=== PATIENT | female | born 1955 | race Two or more races ===

== ENCOUNTER → 2018-01-10 | Outpatient (CLI) | END | disposition home or self-care (01) ==

== ENCOUNTER 2018-06-08 09:47 | Inpatient (IN) | payer OTHER ==
[~2018-06-08] VITALS: Ht 170.2 cm; Wt 96.0 kg
[2018-06-08] VITALS (26 sets, daily range): BP systolic 80–152; BP diastolic 41–68; PULSE 50–76; RESP 12–29; Ht 170.2 cm; Wt 96.0 kg
--- NOTE | 2018-06-08 10:25 | PDOCDIS ---
Discharge Instructions DIAGNOSIS Discharge Diagnosis Status post right total knee replacement CONDITION [id number] Patient Condition: Npyro3i Good HOME CARE INSTRUCTIONS: [id number] Diet Instructions: [id number] Regular ACTIVITY: [id number] Activity Restrictions: [id number] No Restrictions Slowly Increase Activity Rest between Activity Avoid heavy lifting No Sexual Activity Do not Drive Do not operate Machinery Do not operate Power Tool Avoid Heavy Housework Keep Limb Elevated (2-3 pillows underneath the right foot only so that leg remains in full extension) Weight Bearing (Weight-bear as tolerated using front-wheeled walker) [id number] Bathing Restrictions: [id number] Shower (Prineo dressing to remain over surgical wound until seen postoperatively. Okay to shower with this dressing. No bathing or submersion in water.) FOLLOW UP/APPOINTMENTS Follow-up Plan Follow-up at postoperative appointment provided to you at your preoperative exam SELENE CASTRO PA-C Jun 08, 2018 10:25
[2018-06-08] MEDS ORDERED: ATOR10TA65 PO (10:26)
[2018-06-08] MEDS ORDERED: BETHANECHOL 25 MG TAB PO PRN (10:30)
[2018-06-08] MEDS ORDERED: ASPIRIN 81 MG TAB PO ONE (10:30)
[2018-06-08] MEDS ORDERED: DIPHENHYDRAMINE 50 MG INJ IV PRN ×3 (10:30→13:00)
[2018-06-08] MEDS ORDERED: SENNA/DOCUSATE NA (8.6MG/50MG) TAB PO PRN (10:30)
[2018-06-08] MEDS ORDERED: DOCUSATE SODIUM 100 MG CAP PO ONE (10:30)
[2018-06-08] MEDS ORDERED: NA PHOSPHATE/BIPHOS 133 ML ENEMA PR PRN (10:30)
[2018-06-08] MEDS ORDERED: BISACODYL 10 MG SUPP PR PRN (10:30)
[2018-06-08] MEDS ORDERED: NACL 0.9% 3 ML SYG IV SCH (10:30)
[2018-06-08] MEDS ORDERED: NALOXONE (0.4 MG/ML) INJ IV PRN ×2 (10:30→13:00)
[2018-06-08] MEDS ORDERED: oxyCODONE 5 MG TAB PO PRN ×2 (10:30)
[2018-06-08] MEDS ORDERED: MAGNESIUM HYDROXIDE 30ML CUP PO PRN (10:30)
[2018-06-08] MEDS ORDERED: LACTATED RINGER'S 1,000 ML IV* SCH (11:00)
[2018-06-08] MEDS ORDERED: CEFAZOLIN 2 GM/50 ML (PMX) 50 ML IVPB ONE (11:00)
[2018-06-08] MEDS ORDERED: TRANEXAMIC ACID 1,000 MG in NS 100 ML PRE-OP X1 IVPB ONE (12:00)
[2018-06-08] MEDS ORDERED: morphine SULFATE/PF (10 MG/10 ML) INJ ONE (12:11)
[2018-06-08] MEDS ORDERED: ONDANSETRON 4 MG INJ ONE (12:11)
[2018-06-08] MEDS ORDERED: CEFAZOLIN 1 GM INJ ONE (12:11)
[2018-06-08] MEDS ORDERED: DEXAMETHASONE 4 MG/ML 5 ML INJ ONE (12:11)
[2018-06-08] MEDS ORDERED: NEOSTIGMINE 3 MG/3 ML SYRINGE ONE (12:11)
[2018-06-08] MEDS ORDERED: GLYCOPYRROLATE 0.4 MG INJ ONE (12:11)
[2018-06-08] MEDS ORDERED: ROPIVACAINE 0.5 % 30 ML VIAL ONE (12:11)
[2018-06-08] MEDS ORDERED: PROPOFOL 20 ML ONE (12:11)
[2018-06-08] MEDS ORDERED: MIDAZOLAM 1 MG/ML 2 ML INJ ONE (12:11)
[2018-06-08] MEDS ORDERED: ROCURONIUM 50 MG INJ ONE (12:11)
[2018-06-08] MEDS ORDERED: FENTAnyl 50 MCG/ML VIAL ONE (12:11)
[2018-06-08] MEDS ORDERED: HIP PAIN COCKTAIL (CEFUROXIME) INJ SCH ×7 (12:30)
--- NOTE | 2018-06-08 12:46 | HPN ---
Date/Time of Note Date/Time of Note DATE: 06/08/18 TIME: 12:46 Interval H&P Admission Note Pt. seen H&P reviewed: No system changes KELSEY KESSLER MD Jun 08, 2018 12:46
[2018-06-08] MEDS ORDERED: BACITRACIN 50000 UNITS INJ ONE (12:53)
[2018-06-08] MEDS ORDERED: POLYMYXIN B 500000 UNIT INJ ONE (12:54)
--- NOTE | 2018-06-08 12:58 | PREAC ---
Date/Time of Note Date/Time of Note DATE: 06/08/18 TIME: 12:57 Anesthesia Eval and Record Evaluation Time Pre-Procedure Interview DATE: 06/08/18 TIME: 12:57 Age 62 Sex female NPO: 8 hrs Preoperative diagnosis RIGHT KNEE OA Planned procedure RIGHT TKA Past Medical History Past Medical History: Includes Cardio: Dyslipidemia GI: Obesity Surgery & Anesthesia Issues No known issue (RIGHT EYE SX) Meds Anticoagulation: No Beta Isaiah within 24 hr: No Reason Beta Isaiah not given: Pt. not on B-Isaiah Reported Medications Atorvastatin Calcium (Atorvastatin Calcium) 10 Mg Tablet, 10 MG PO QHS, #30 TAB 06/08/18 Current Medications Lactated Ringer's 1,000 ml @ 125 mls/hr Q8H IV* ; Start 06/08/18 at 11:00; Stop 06/08/18 at 18:59 Tranexamic Acid 1000 mg/Sodium Chloride 110 ml @ 220 mls/hr INTRA-OP ONCE IVPB ; Start 06/08/18 at 13:30; Stop 06/08/18 at 13:59 Sodium Chloride 1,000 ml @ 80 mls/hr [id number] IV ; Start 06/08/18 at 10:28 IV Flush (NS 3 ml) 3 ml PER PROTOCOL IV ; Start 06/08/18 at 10:30 Oxycodone HCl (Roxicodone) 15 mg Q4H PRN PO PAIN; Start 06/08/18 at 10:30 Oxycodone HCl (Roxicodone) 10 mg Q4H PRN PO PAIN; Start 06/08/18 at 10:30 Oxycodone HCl (Roxicodone) 5 mg Q4H PRN PO PAIN; Start 06/08/18 at 10:30 Ondansetron HCl (Zofran Inj) 4 mg Q4H PRN IV NAUSEA AND/OR VOMITING; Start 06/09/18 at 10:30 Cefazolin Sodium/ Dextrose 50 ml @ 100 mls/hr Q8 IVPB ; Start 06/08/18 at 22:00; Stop 06/09/18 at 14:29 Celecoxib (Celebrex) 100 mg BID PO ; Start 06/09/18 at 09:00 Gabapentin (Neurontin) 100 mg TID PO ; Start 06/08/18 at 14:00 Pantoprazole (Protonix Tab) 40 mg DAILY@06 PO ; Start 06/10/18 at 06:00 Docusate Sodium (Colace) 200 mg BID PO ; Start 06/09/18 at 09:00; Stop 06/12/18 at 08:59 Simethicone (Mylicon) 80 mg TID PRN PO DISTENSION/GAS/BLOATING; Start 06/08/18 at 10:30 Senna/Docusate Sodium (Senokot-S) 2 tab BID PRN PO CONSTIPATION; Start 06/08/18 at 10:30 Magnesium Hydroxide (Milk Of Mag) 30 ml HS PRN PO CONSTIPATION; Start 06/08/18 at 10:30 Bisacodyl (Dulcolax Supp) 10 mg DAILY PRN [place] CONSTIPATION; Start 06/08/18 at 10:30 Sodium Biphosphate/ Sodium Phosphate (Fleet Enema) 133 ml DAILY PRN [place] CONSTIPATION; Start 06/08/18 at 10:30 Diphenhydramine HCl (Benadryl) 25 mg Q4H PRN IV ITCHING; Start 06/08/18 at 10:30 Naloxone HCl (Narcan) 0.2 mg Q2M PRN IV DECREASED REPIRATORY RATE; Start 06/08/18 at 10:30 Bethanechol Chloride (Urecholine) 25 mg URINARY CATH D/C PRN PO UNABLE TO VOID; Start 06/08/18 at 10:30 Aspirin (Halfprin) 81 mg BID PO ; Start 06/09/18 at 09:00 Meds reviewed: Yes Allergies Coded Allergies: No Known Allergy (Unverified , 06/08/18) Allergies Reviewed: Yes Labs/Studies Labs Reviewed: Reviewed by anesthesiologist test: N/A Studies: ECG (NL), CXR (NAPD) Pre-procedure Exam Last vitals Vital Signs Date Temp Pulse Resp B/P (MAP) Pulse Ox O2 O2 Flow FiO2 Time Delivery Rate 06/08/18 97.0 65 18 152/67 98 Room Air 10:55 (95) Airway: Adequate mouth opening, Adequate thyromental dist Mallampati: Mallampati II Teeth: Normal Lung: Normal Heart: Normal ASA Physical Status ASA physical status: 2 Emergency: None Planned Anesthetic General/MAC: ETT Neuraxial: Spinal Nerve block: Femoral (right) Planned Pain Management Single shot nerve block, Parenteral pain med Pre-operative Attestations Prior to commencing anesthesia and surgery, the patient was re-evaluated, there was verification of: *The patient's identity *The results of appropriate recent lab work and preoperative vital signs *The above evaluation not changing prior to induction *Anesthetic plan, risk benefits, alternative and complications discussed with patient/family; questions answered; patient/family understands, accepts and wishes to proceed. Nicholas Crews M.D. Jun 08, 2018 12:58
[2018-06-08] MEDS ORDERED: EPHEDrine SULFATE 50 MG/5 ML SYG IV PRN (13:00)
[2018-06-08] MEDS ORDERED: NALBUPHINE HCL (10 MG/1 ML) INJ IV PRN (13:00)
[2018-06-08] MEDS ORDERED: LABETALOL HCL 20MG INJ IV PRN (13:00)
[2018-06-08] MEDS ORDERED: ONDANSETRON 4 MG INJ IV PRN ×2 (13:00)
[2018-06-08] MEDS ORDERED: MEPERIDINE 25 MG INJ IV PRN (13:00)
[2018-06-08] MEDS ORDERED: FENTAnyl 50 MCG/ML VIAL IV PRN ×3 (13:00)
[2018-06-08] MEDS ORDERED: ALBUTEROL 0.083% (NEB) 2.5 MG/3 ML AMP HHN PRN (13:00)
[2018-06-08] MEDS ORDERED: HYDROmorphONE 1 MG/5 ML IV SYRINGE IV PRN ×3 (13:00)
[2018-06-08] MEDS ORDERED: MIDAZOLAM 1 MG/ML 2 ML INJ IV PRN (13:00)
[2018-06-08] MEDS ORDERED: KETOROLAC 30 MG INJ IV PRN (13:00)
[2018-06-08] MEDS ORDERED: OXYCODONE/ACETAMINOPHEN (5/325) TAB PO PRN ×2 (13:00)
[2018-06-08] MEDS ORDERED: TRIMETHOBENZAMIDE 100 MG/ML VIAL IM PRN ×2 (13:00)
[2018-06-08] MEDS ORDERED: hydrALAzine 20 MG INJ IV PRN (13:00)
[2018-06-08] MEDS ORDERED: HYDROmorphONE 0.5 MG/0.5 ML SYG IV PRN ×2 (13:00)
[2018-06-08] MEDS ORDERED: IPRATROPIUM (NEB) 0.5 MG/2.5 ML AMP HHN PRN (13:00)
[2018-06-08] MEDS ORDERED: ZOLPIDEM 5 MG TAB PO PRN (13:00)
[2018-06-08] MEDS ORDERED: TRANEXAMIC ACID 1,000 MG in NS 100 ML INTRA-OP X1 IVPB ONE (13:30)
[2018-06-08] MEDS: GABAPENTIN 100 MG CAP PO SCH ×2 (14:00→21:18)
--- NOTE | 2018-06-08 15:05 | SIPON ---
Date/Time of Note Date/Time of Note DATE: 06/08/18 TIME: 15:03 Operative Report Preoperative Diagnosis Right Knee Osteoarthritis Postoperative Diagnosis Same Operation/Procedure Performed Right Total Knee Arthroplasty Surgeon Lucía Kessler MD assistant professor of geography Roberto Gonzalez Second assist: SELENE CASTRO PA-C Anesthesia: spinal Estimated blood loss: 250 - 300 ml's Transfusion Required none Specimen bone Grafts/Implants none Complications none LUCÍA KESSLER MD Jun 08, 2018 15:05
--- NOTE | 2018-06-08 15:09 | OPR ---
Date/Time of Note Date/Time of Note DATE: 06/08/18 TIME: 15:05 Operative Report Free Text/Dictation DATE OF OPERATION: June 08, 2018 SURGEON: Kelsey Kessler MD ROADWAY ENGINEER: Roberto SOTO ROADWAY ENGINEER: Mike Childers PREOPERATIVE DIAGNOSIS: Right knee osteoarthritis. POSTOPERATIVE DIAGNOSIS: Right knee osteoarthritis. PROCEDURES PERFORMED: Right total knee arthroplasty, CPT code 97977. ANESTHESIOLOGIST: Dr. Crews ANESTHESIA: Spinal. ESTIMATED BLOOD LOSS: 300 mL. COMPLICATIONS: None. SPECIMENS: Resected bone. DISPOSITION: PACU in stable condition. TOURNIQUET TIME: 57 minutes at 250 mmHg. IMPLANT USED: Avelar and Nephew size 5 Margie tibial baseplate, size 5 Standard posterior stabilized Oxinium femur, size 9 high flexion polyethylene, size 35 mm patella. INDICATION FOR PROCEDURE: This is an 62-year-old female with end-stage osteoarthritis of the right knee who had failed nonoperative management. Risks, benefits, alternatives of surgical intervention were discussed with the patient and informed consent was obtained. The risks of surgery include but are not limited to infection, deep venous thrombosis, pulmonary embolism, damage to nerves and blood vessels, numbness around incision site, stiffness of knee, need for total knee manipulation under anesthesia, need for blood transfuion, heart attack, stroke, risks associated with anesthesia, implant loosening, wear of prosthesis, need for revision surgery, and . DESCRIPTION OF PROCEDURE: The patient was met in the preoperative suite. The correct operative site was confirmed and marked. The patient was then brought into operating room. After induction of anesthesia, the patient was placed in the supine position on the operating room table. A tourniquet was applied to right upper thigh. The right lower extremity was prepped and draped in the usual sterile fashion. Before starting, a timeout was taken to identify the cor rect operative site and confirm preoperative antibiotics consisting of 1 g of IV Ancef, along with 1 g of tranexamic acid were administered. At this point, the right leg was elevated and exsanguinated with an Esmarch and tourniquet was then insufflated for the above noted time. A midline incision was made and median parapatellar arthrotomy was then completed. The lateral patellar retinacular ligaments were released. A sleeve of tissue was released from the medial proximal tibia. The cruciate ligaments and the menisci were then excised. At this point, the custom distal femur cutting block was then pinned and 9.5 mm was resected from the distal femur. The 4-in-1 cutting block, size 5 was then placed. An mey wing was used to confirm that notching of the anterior cortex of the femur would not occur. The anterior and posterior condylar cuts were completed followed by the anterior and posterior chamfer cuts. The osteophytes were then removed with a rongeur. At this point, the tibia was subluxed anteriorly. Appropriate retractors were placed. The custom tibial cutting block was then pinned. The drop was used to ensure the correct alignment. Approximately 11 mm was resected off the lateral tibial plateau and 5 mm off the medial tibial plateau. Osteophytes were then removed. At this point, the flexion extension gaps were checked with a 9 mm gap stock checkerer and noted to be tight in extension. Additional 2mm was taken off the distal femur. The 4-in-1 cutting block, size 5 was then placed again. The anterior and posterior condylar cuts were completed followed by the anterior and posterior chamfer cuts. The flexion and extension gaps at this time were equal. Next, trial 5 femur was then pinned and the box cut was then completed. The tibia was then subluxed anteriorly and measured to size 5. The tibial tray was then pinned and a keel was then punched. The trial components were placed with a 9 mm polyethylene and noted to have full extension and greater than 120 degrees of flexion. The patella was then subluxed laterally and sized to 21 mm. Approximately, 7 mm was resected. The patellar was sized to 35 mm. The button was placed and noted to have excellent patellar tracking. The trial components were removed. All bony surfaces were pulse lavaged and dried. The appropriate size components were then cemented and the knee was held in extension with a 9 mm trial polyethylene until the cement cured. Once the cement had cured, the trial polyethylene was removed and the appropriate size polyethylene was then placed. The tranexamic acid was redosed. The cocktail was then injected. The extensor mechanism was closed using #1 Stratafix and the subcutaneous tissue with 2-0 Vicryl and the skin with 4-0 Monocryl. Steri- Strips were applied along with a sterile dressing. There were no complications. The patient was transferred to PACU in stable condition. POSTOPERATIVE CARE: The patient will be weightbearing as tolerated. The patient will work with physical therapy, and will receive two additional doses of IV antibiotics along with aspirin 81 mg p.o. b.i.d. for 6 weeks. Upon discharge, patient will follow up in my office within 2 weeks postoperatively. KELSEY KESSLER MD Jun 08, 2018 15:09
--- NOTE | 2018-06-08 15:42 | CONS ---
Date/Time of Note Date/Time of Note DATE: 06/08/18 TIME: 15:42 Assessment/Plan Assessment/Plan Hospital Course Objective Physical exam General: Patient is laying in bed and answers questions appropriately Mentation: Patient is alert and oriented 4, Head: Normocephalic atraumatic Eyes: EOMI, pupils reactive to light Neck: Supple, nontender, midline Respiratory: Clear to auscultation bilaterally Cardiovascular: regular rate, no obvious murmurs Gastrointestinal: non-tender to palpation, bowel sounds heard. Neurological: Moves all extremities spontaneously Skin: Right knee bandaged, CDI Assessment and plan Right knee osteoarthritis, status post total right knee arthroplasty -Orthopedic surgery to manage -Monitor Right knee osteoarthritis -Status post right knee arthroplasty Dyslipidemia -Continue home meds Disposition -Orthopedic surgery to manage, will follow along as hospitalist. Consultation Date/Type/Reason Admit Date/Time Jun 08, 2018 at 09:47 Hx of Present Illness Patient is a female with past medical history significant for dyslipidemia and osteoarthritis who presents to [facility] for an elective total right knee arthroplasty. Patient has returned from the surgical suite and is currently in the postanesthesia care unit, patient still mildly sedated however is alert and oriented. Patient feels well and denies any pain currently. Patient denies chest pain, shortness of breath, abdominal pain, knee pain, head pain. Patient still under the effects of anesthesia and epi dural Past Medical History Medications Current Medications Lactated Ringer's 1,000 ml @ 125 mls/hr Q8H IV* ; Start 06/08/18 at 11:00; Stop 06/08/18 at 18:59 Sodium Chloride 1,000 ml @ 80 mls/hr [id number] IV ; Start 06/08/18 at 10:28 IV Flush (NS 3 ml) 3 ml PER PROTOCOL IV ; Start 06/08/18 at 10:30 Oxycodone HCl (Roxicodone) 15 mg Q4H PRN PO PAIN; Start 06/08/18 at 10:30 Oxycodone HCl (Roxicodone) 10 mg Q4H PRN PO PAIN; Start 06/08/18 at 10:30 Oxycodone HCl (Roxicodone) 5 mg Q4H PRN PO PAIN; Start 06/08/18 at 10:30 Ondansetron HCl (Zofran Inj) 4 mg Q4H PRN IV NAUSEA AND/OR VOMITING; Start 06/09/18 at 10:30 Cefazolin Sodium/ Dextrose 50 ml @ 100 mls/hr Q8 IVPB ; Start 06/08/18 at 22:00; Stop 06/09/18 at 14:29 Celecoxib (Celebrex) 100 mg BID PO ; Start 06/09/18 at 09:00 Gabapentin (Neurontin) 100 mg TID PO ; Start 06/08/18 at 14:00 Pantoprazole (Protonix Tab) 40 mg DAILY@06 PO ; Start 06/10/18 at 06:00 Docusate Sodium (Colace) 200 mg BID PO ; Start 06/09/18 at 09:00; Stop 06/12/18 at 08:59 Simethicone (Mylicon) 80 mg TID PRN PO DISTENSION/GAS/BLOATING; Start 06/08/18 at 10:30 Senna/Docusate Sodium (Senokot-S) 2 tab BID PRN PO CONSTIPATION; Start 06/08/18 at 10:30 Magnesium Hydroxide (Milk Of Mag) 30 ml HS PRN PO CONSTIPATION; Start 06/08/18 at 10:30 Bisacodyl (Dulcolax Supp) 10 mg DAILY PRN [place] CONSTIPATION; Start 06/08/18 at 10:30 Sodium Biphosphate/ Sodium Phosphate (Fleet Enema) 133 ml DAILY PRN [place] CONSTIPATION; Start 06/08/18 at 10:30 Diphenhydramine HCl (Benadryl) 25 mg Q4H PRN IV ITCHING; Start 06/08/18 at 10:30 Naloxone HCl (Narcan) 0.2 mg Q2M PRN IV DECREASED REPIRATORY RATE; Start 06/08/18 at 10:30 Bethanechol Chloride (Urecholine) 25 mg URINARY CATH D/C PRN PO UNABLE TO VOID; Start 06/08/18 at 10:30 Aspirin (Halfprin) 81 mg BID PO ; Start 06/09/18 at 09:00 Hydromorphone HCl (Dilaudid) 0.2 mg PACU PRN IV MILD PAIN LEVEL 1-3; Start 06/08/18 at 13:00; Stop 06/08/18 at 20:00 Hydromorphone HCl (Dilaudid) 0.4 mg PACU PRN IV MODERATE PAIN LEVEL 4-6; Start 06/08/18 at 13:00; Stop 06/08/18 at 20:00 Hydromorphone HCl (Dilaudid) 0.6 mg PACU PRN IV SEVERE PAIN LEVEL 7-10; Start 06/08/18 at 13:00; Stop 06/08/18 at 20:00 Fentanyl (Sublimaze) 25 mcg PACU ORDER PRN IV MILD PAIN LEVEL 1-3; Start 06/08/18 at 13:00; Stop 06/08/18 at 20:00 Fentanyl (Sublimaze) 50 mcg PACU ORDER PRN IV MODERATE PAIN LEVEL 4-6; Start 06/08/18 at 13:00; Stop 06/08/18 at 20:00 Fentanyl (Sublimaze) 75 mcg PACU ORDER PRN IV SEVERE PAIN LEVEL 7-10; Start 06/08/18 at 13:00; Stop 06/08/18 at 20:00 Oxycodone/ Acetaminophen (Percocet (5/ 325)) 1 tab PACU ORDER PRN PO PAIN LEVEL 1-5; Start 06/08/18 at 13:00; Stop 06/08/18 at 20:00 Oxycodone/ Acetaminophen (Percocet (5/ 325)) 2 tab PACU ORDER PRN PO PAIN LEVEL 6-10; Start 06/08/18 at 13:00; Stop 06/08/18 at 20:00 Ondansetron HCl (Zofran Inj) 4 mg PACU ORDER PRN IV NAUSEA AND/OR VOMITING; Start 06/08/18 at 13:00; Stop 06/08/18 at 20:00 Trimethobenzamide HCl (Tigan) 200 mg PACU ORDER PRN IM NAUSEA AND/OR VOMITING; Start 06/08/18 at 13:00; Stop 06/08/18 at 20:00 Labetalol HCl (Labetalol) 5 mg PACU ORDER PRN IV ELEVATED BLOOD PRESSURE; Start 06/08/18 at 13:00; Stop 06/08/18 at 20:00 Hydralazine HCl (Apresoline) 5 mg PACU ORDER PRN IV ELEVATED BLOOD PRESSURE; Start 06/08/18 at 13:00; Stop 06/08/18 at 20:00 Ephedrine Sulfate 5 mg PACU ORDER PRN IV BLOOD PRESSURE SUPPORT; Start 06/08/18 at 13:00; Stop 06/08/18 at 20:00 Albuterol (Proventil 0.083% (Neb)) 2.5 mg PACU ORDER PRN HHN WHEEZING; Start 06/08/18 at 13:00; Stop 06/08/18 at 20:00 Ipratropium [place] (Atrovent 0.02% (Neb)) 0.5 mg PACU ORDER PRN HHN WHEEZING; Start 06/08/18 at 13:00; Stop 06/08/18 at 20:00 Meperidine HCl (Demerol) 25 mg PACU ORDER PRN IV POST OPERATIVE SHIVERING; Start 06/08/18 at 13:00; Stop 06/08/18 at 20:00 Diphenhydramine HCl (Benadryl) 25 mg PACU ORDER PRN IV PRURITUS; Start 06/08/18 at 13:00; Stop 06/08/18 at 20:00 Midazolam HCl (Versed) 0.5 mg PACU ORDER PRN IV ANXIETY; Start 06/08/18 at 13:00; Stop 06/08/18 at 20:00 Hydromorphone HCl (Dilaudid) 0.2 mg Q2H PRN IV PAIN LEVEL 1-5; Start 06/08/18 at 13:00; Stop 06/09/18 at 13:15 Hydromorphone HCl (Dilaudid) 0.4 mg Q2H PRN IV PAIN LEVEL 6-10; Start 06/08/18 at 13:00; Stop 06/09/18 at 13:15 Ketorolac Tromethamine (Toradol) 30 mg Q6H PRN IV PAIN LEVEL 6-10; Start 06/08/18 at 13:00; Stop 06/09/18 at 13:15 Diphenhydramine HCl (Benadryl) 25 mg Q4H PRN IV PRURITUS; Start 06/08/18 at 13:00; Stop 06/09/18 at 13:15 Nalbuphine HCl (Nubain) 10 mg Q4H PRN IV PRURITUS; Start 06/08/18 at 13:00; Stop 06/09/18 at 13:15 Ondansetron HCl (Zofran Inj) 4 mg Q6H PRN IV NAUSEA AND/OR VOMITING; Start 06/08/18 at 13:00; Stop 06/09/18 at 13:15 Trimethobenzamide HCl (Tigan) 200 mg Q6H PRN [place] NAUSEA AND/OR VOMITING; Start 06/08/18 at 13:00; Stop 06/09/18 at 13:15 Zolpidem Tartrate (Ambien) 5 mg HS MAY REPEAT X 1 PRN PO INSOMNIA; Start 06/08/18 at 13:00; Stop 06/09/18 at 13:15 Naloxone HCl (Narcan) 0.2 mg Q2M PRN IV DECREASED REPIRATORY RATE; Start 06/08/18 at 13:00; Stop 06/09/18 at 13:15 Miscellaneous Information (* Miscellaneous Pharmacy Order) DURAMORPH: 0.1 MG SPI... GIVEN NEURAXIAL XX ; Start 06/08/18 at 13:00; Stop 06/09/18 at 13:15 Allergies: Coded Allergies: No Known Allergy (Unverified , 06/08/18) Social History Smoking Status: Never smoker Exam/Review of Systems Vital Signs Vitals Vital Signs Date Temp Pulse Resp B/P (MAP) Pulse Ox O2 O2 Flow FiO2 Time Delivery Rate 06/08/18 98.5 15:34 06/08/18 65 18 152/67 98 Room Air 10:55 (95) Medications Medications Current Medications Lactated Ringer's 1,000 ml @ 125 mls/hr Q8H IV* ; Start 06/08/18 at 11:00; Stop 06/08/18 at 18:59 Sodium Chloride 1,000 ml @ 80 mls/hr [id number] IV ; Start 06/08/18 at 10:28 IV Flush (NS 3 ml) 3 ml PER PROTOCOL IV ; Start 06/08/18 at 10:30 Oxycodone HCl (Roxicodone) 15 mg Q4H PRN PO PAIN; Start 06/08/18 at 10:30 Oxycodone HCl (Roxicodone) 10 mg Q4H PRN PO PAIN; Start 06/08/18 at 10:30 Oxycodone HCl (Roxicodone) 5 mg Q4H PRN PO PAIN; Start 06/08/18 at 10:30 Ondansetron HCl (Zofran Inj) 4 mg Q4H PRN IV NAUSEA AND/OR VOMITING; Start 06/09/18 at 10:30 Cefazolin Sodium/ Dextrose 50 ml @ 100 mls/hr Q8 IVPB ; Start 06/08/18 at 22:00; Stop 06/09/18 at 14:29 Celecoxib (Celebrex) 100 mg BID PO ; Start 06/09/18 at 09:00 Gabapentin (Neurontin) 100 mg TID PO ; Start 06/08/18 at 14:00 Pantoprazole (Protonix Tab) 40 mg DAILY@06 PO ; Start 06/10/18 at 06:00 Docusate Sodium (Colace) 200 mg BID PO ; Start 06/09/18 at 09:00; Stop 06/12/18 at 08:59 Simethicone (Mylicon) 80 mg TID PRN PO DISTENSION/GAS/BLOATING; Start 06/08/18 at 10:30 Senna/Docusate Sodium (Senokot-S) 2 tab BID PRN PO CONSTIPATION; Start 06/08/18 at 10:30 Magnesium Hydroxide (Milk Of Mag) 30 ml HS PRN PO CONSTIPATION; Start 06/08/18 at 10:30 Bisacodyl (Dulcolax Supp) 10 mg DAILY PRN [place] CONSTIPATION; Start 06/08/18 at 10:30 Sodium Biphosphate/ Sodium Phosphate (Fleet Enema) 133 ml DAILY PRN [place] CONSTIPATION; Start 06/08/18 at 10:30 Diphenhydramine HCl (Benadryl) 25 mg Q4H PRN IV ITCHING; Start 06/08/18 at 10:30 Naloxone HCl (Narcan) 0.2 mg Q2M PRN IV DECREASED REPIRATORY RATE; Start 06/08/18 at 10:30 Bethanechol Chloride (Urecholine) 25 mg URINARY CATH D/C PRN PO UNABLE TO VOID; Start 06/08/18 at 10:30 Aspirin (Halfprin) 81 mg BID PO ; Start 06/09/18 at 09:00 Hydromorphone HCl (Dilaudid) 0.2 mg PACU PRN IV MILD PAIN LEVEL 1-3; Start 06/08/18 at 13:00; Stop 06/08/18 at 20:00 Hydromorphone HCl (Dilaudid) 0.4 mg PACU PRN IV MODERATE PAIN LEVEL 4-6; Start 06/08/18 at 13:00; Stop 06/08/18 at 20:00 Hydromorphone HCl (Dilaudid) 0.6 mg PACU PRN IV SEVERE PAIN LEVEL 7-10; Start 06/08/18 at 13:00; Stop 06/08/18 at 20:00 Fentanyl (Sublimaze) 25 mcg PACU ORDER PRN IV MILD PAIN LEVEL 1-3; Start 06/08/18 at 13:00; Stop 06/08/18 at 20:00 Fentanyl (Sublimaze) 50 mcg PACU ORDER PRN IV MODERATE PAIN LEVEL 4-6; Start 06/08/18 at 13:00; Stop 06/08/18 at 20:00 Fentanyl (Sublimaze) 75 mcg PACU ORDER PRN IV SEVERE PAIN LEVEL 7-10; Start 06/08/18 at 13:00; Stop 06/08/18 at 20:00 Oxycodone/ Acetaminophen (Percocet (5/ 325)) 1 tab PACU ORDER PRN PO PAIN LEVEL 1-5; Start 06/08/18 at 13:00; Stop 06/08/18 at 20:00 Oxycodone/ Acetaminophen (Percocet (5/ 325)) 2 tab PACU ORDER PRN PO PAIN LEVEL 6-10; Start 06/08/18 at 13:00; Stop 06/08/18 at 20:00 Ondansetron HCl (Zofran Inj) 4 mg PACU ORDER PRN IV NAUSEA AND/OR VOMITING; Start 06/08/18 at 13:00; Stop 06/08/18 at 20:00 Trimethobenzamide HCl (Tigan) 200 mg PACU ORDER PRN IM NAUSEA AND/OR VOMITING; Start 06/08/18 at 13:00; Stop 06/08/18 at 20:00 Labetalol HCl (Labetalol) 5 mg PACU ORDER PRN IV ELEVATED BLOOD PRESSURE; Start 06/08/18 at 13:00; Stop 06/08/18 at 20:00 Hydralazine HCl (Apresoline) 5 mg PACU ORDER PRN IV ELEVATED BLOOD PRESSURE; Start 06/08/18 at 13:00; Stop 06/08/18 at 20:00 Ephedrine Sulfate 5 mg PACU ORDER PRN IV BLOOD PRESSURE SUPPORT; Start 06/08/18 at 13:00; Stop 06/08/18 at 20:00 Albuterol (Proventil 0.083% (Neb)) 2.5 mg PACU ORDER PRN HHN WHEEZING; Start 06/08/18 at 13:00; Stop 06/08/18 at 20:00 Ipratropium [place] (Atrovent 0.02% (Neb)) 0.5 mg PACU ORDER PRN HHN WHEEZING; Start 06/08/18 at 13:00; Stop 06/08/18 at 20:00 Meperidine HCl (Demerol) 25 mg PACU ORDER PRN IV POST OPERATIVE SHIVERING; Start 06/08/18 at 13:00; Stop 06/08/18 at 20:00 Diphenhydramine HCl (Benadryl) 25 mg PACU ORDER PRN IV PRURITUS; Start 06/08/18 at 13:00; Stop 06/08/18 at 20:00 Midazolam HCl (Versed) 0.5 mg PACU ORDER PRN IV ANXIETY; Start 06/08/18 at 13:00; Stop 06/08/18 at 20:00 Hydromorphone HCl (Dilaudid) 0.2 mg Q2H PRN IV PAIN LEVEL 1-5; Start 06/08/18 at 13:00; Stop 06/09/18 at 13:15 Hydromorphone HCl (Dilaudid) 0.4 mg Q2H PRN IV PAIN LEVEL 6-10; Start 06/08/18 at 13:00; Stop 06/09/18 at 13:15 Ketorolac Tromethamine (Toradol) 30 mg Q6H PRN IV PAIN LEVEL 6-10; Start 05/24 11/09 at 13:00; Stop 06/09/18 at 13:15 Diphenhydramine HCl (Benadryl) 25 mg Q4H PRN IV PRURITUS; Start 06/08/18 at 13:00; Stop 06/09/18 at 13:15 Nalbuphine HCl (Nubain) 10 mg Q4H PRN IV PRURITUS; Start 06/08/18 at 13:00; Stop 06/09/18 at 13:15 Ondansetron HCl (Zofran Inj) 4 mg Q6H PRN IV NAUSEA AND/OR VOMITING; Start 06/08/18 at 13:00; Stop 06/09/18 at 13:15 Trimethobenzamide HCl (Tigan) 200 mg Q6H PRN IM NAUSEA AND/OR VOMITING; Start 06/08/18 at 13:00; Stop 06/09/18 at 13:15 Zolpidem Tartrate (Ambien) 5 mg HS MAY REPEAT X 1 PRN PO INSOMNIA; Start 06/08/18 at 13:00; Stop 06/09/18 at 13:15 Naloxone HCl (Narcan) 0.2 mg Q2M PRN IV DECREASED REPIRATORY RATE; Start 06/08/18 at 13:00; Stop 06/09/18 at 13:15 Miscellaneous Information (* Miscellaneous Pharmacy Order) DURAMORPH: 0.1 MG SPI... GIVEN NEURAXIAL XX ; Start 06/08/18 at 13:00; Stop 06/09/18 at 13:15 LESLEY MCKEON Jun 08, 2018 15:42
[2018-06-08] MEDS ORDERED: GUAIFENESIN/CODEINE 5ML CUP PO PRN (16:00)
[2018-06-08] MEDS ORDERED: ALBUTEROL/IPRATROPIUM (NEB) 3 ML AMP HHN PRN (16:00)
--- NOTE | 2018-06-08 16:06 | PAC ---
Date/Time of Note Date/Time of Note DATE: 06/08/18 TIME: 16:06 Post-Anesthesia Notes Post-Anesthesia Note Last documented vital signs Vital Signs Date Temp Pulse Resp B/P (MAP) Pulse Ox O2 O2 Flow FiO2 Time Delivery Rate 06/08/18 3.0 16:02 06/08/18 58 15 80/65 (70) 97 Nasal 15:54 Cannula 06/08/18 98.5 15:34 Activity: WNL Respiratory function: WNL Cardiovascular function: WNL Mental status: Baseline Pain reasonably controlled: Yes Hydration appropriate: Yes Nausea/Vomiting absent: Yes Nicholas Crews M.D. Jun 08, 2018 16:06
[2018-06-08] MEDS: SOD CHLORIDE 0.9% 1,000 ML IV SCH ×2 (19:09→22:58)
[2018-06-08] MEDS ORDERED: ATORVASTATIN 10 MG TAB PO SCH (21:00)
[2018-06-08] MEDS: CEFAZOLIN 2 GM/50 ML (PMX) 50 ML IVPB SCH (21:20)
[2018-06-09 00:10] VITALS: BP 123/75; PULSE 59; RESP 16
[2018-06-09] MEDS: CEFAZOLIN 2 GM/50 ML (PMX) 50 ML IVPB SCH ×2 (06:21→13:09)
[2018-06-09 08:08] VITALS: BP 117/60; PULSE 66
[2018-06-09] MEDS ORDERED: DOCUSATE SODIUM 100 MG CAP PO SCH (09:00)
[2018-06-09] MEDS ORDERED: CELECOXIB 100 MG CAP PO SCH (09:00)
[2018-06-09] MEDS ORDERED: ASPIRIN (EC) 81 MG TAB PO SCH (09:00)
[2018-06-09] MEDS: GABAPENTIN 100 MG CAP PO SCH ×2 (09:08→13:09)
[2018-06-09] MEDS: oxyCODONE 5 MG TAB PO PRN ×3 (09:08→18:45)
[2018-06-09] MEDS ORDERED: ONDANSETRON 4 MG INJ IV PRN (10:30)
[2018-06-09] MEDS: SOD CHLORIDE 0.9% 1,000 ML IV SCH (11:28)
--- NOTE | 2018-06-09 13:00 | PN ---
Date/Time of Note Date/Time of Note DATE: 06/09/18 TIME: 12:59 Assessment/Plan VTE Prophylaxis VTE Prophylaxis Intervention: ambulation, SCD's, other (Aspirin 81 mg) Lines/Catheters IV Catheter Type (from Nrsg): Peripheral IV Assessment/Plan Assessment/Plan -Pain Meds as needed -ASA for DVT Prophylaxis x 6 weeks outpatient discussed. -Continue monitoring as outpatient on discharge -Follow-up at scheduled postop outpatient appointment or sooner if there is any issue. -Patient Stable -Discharge to Home with home health Subjective 24 Hr Interval Summary 62-year-old female postop day 1 status post right total knee arthroplasty. Minimal pain complaints of the knee. Denies any chest pain/tightness, shortness of breath or difficulty breathing. Denies any fever, chills or malaise. Has initiated physical therapy walking up to 25 feet. Pain Control: mild Exam/Review of Systems Vital Signs Vitals Vital Signs Date Temp Pulse Resp B/P (MAP) Pulse Ox O2 O2 Flow FiO2 Time Delivery Rate 06/09/18 98.3 66 117/60 97 Room Air 08:08 (79) 06/09/18 16 00:10 06/08/18 3.0 16:59 Intake and Output 06/08/18 06/08/18 06/09/18 1515:00 23:00 07:00 IntakeIntake Total 2000 ml 1310 ml 50 ml OutputOutput Total 50 ml 300 ml BalanceBalance 2000 ml 1260 ml -250 ml Exam Free Text/Dictation -No complications with dressing intact. -4+/5 Tibialis Anterior, EHL Gastrocnemius/Soleus and Peroneals -Normal Sensation -Palpable DP/PT, Capillary Refill <2 secs -No Distal Edema -Negative Heather Sign/No calf pain -Toes Freely Movable Constitutional: alert, oriented, well developed Results Result Diagram: 06/09/18 0426 06/09/18 0426 SELENE CASTRO PA-C Jun 09, 2018 13:00
--- NOTE | 2018-06-09 13:31 | PN ---
Date/Time of Note Date/Time of Note DATE: 06/09/18 TIME: 13:31 Objective Vitals Vital Signs Date Temp Pulse Resp B/P (MAP) Pulse Ox O2 O2 Flow FiO2 Time Delivery Rate 06/09/18 98.3 66 117/60 97 Room Air 08:08 (79) 06/09/18 16 00:10 06/08/18 3.0 16:59 Intake and Output 06/08/18 06/08/18 06/09/18 1414:59 22:59 06:59 IntakeIntake Total 2000 ml 1310 ml 50 ml OutputOutput Total 50 ml 300 ml BalanceBalance 2000 ml 1260 ml -250 ml Results Result Diagram: 06/09/18 0426 06/09/18 0426 Medications Medications Current Medications Sodium Chloride 1,000 ml @ 80 mls/hr [id number] IV Last administered on 06/08/18at 19:09; Admin Dose 80 MLS/HR; Start 06/08/18 at 10:28 IV Flush (NS 3 ml) 3 ml PER PROTOCOL IV ; Start 06/08/18 at 10:30 Oxycodone HCl (Roxicodone) 15 mg Q4H PRN PO PAIN; Start 06/08/18 at 10:30 Oxycodone HCl (Roxicodone) 10 mg Q4H PRN PO PAIN; Start 06/08/18 at 10:30 Oxycodone HCl (Roxicodone) 5 mg Q4H PRN PO PAIN Last administered on 06/09/18at 13:09; Admin Dose 5 MG; Start 06/08/18 at 10:30 Ondansetron HCl (Zofran Inj) 4 mg Q4H PRN IV NAUSEA AND/OR VOMITING; Start 06/09/18 at 10:30 Cefazolin Sodium/ Dextrose 50 ml @ 100 mls/hr Q8 IVPB Last administered on 06/09/18at 13:09; Admin Dose 100 MLS/HR; Start 06/08/18 at 22:00; Stop 06/09/18 at 14:29 Celecoxib (Celebrex) 100 mg BID PO Last administered on 06/09/18at 09:08; Admin Dose 100 MG; Start 06/09/18 at 09:00 Gabapentin (Neurontin) 100 mg TID PO Last administered on 06/09/18at 13:09; Admin Dose 100 MG; Start 06/08/18 at 14:00 Pantoprazole (Protonix Tab) 40 mg DAILY@06 PO ; Start 06/10/18 at 06:00 Docusate Sodium (Colace) 200 mg BID PO Last administered on 06/09/18at 09:08; Admin Dose 200 MG; Start 06/09/18 at 09:00; Stop 06/12/18 at 08:59 Simethicone (Mylicon) 80 mg TID PRN PO DISTENSION/GAS/BLOATING; Start 06/08/18 at 10:30 Senna/Docusate Sodium (Senokot-S) 2 tab BID PRN PO CONSTIPATION; Start 06/08/18 at 10:30 Magnesium Hydroxide (Milk Of Mag) 30 ml HS PRN PO CONSTIPATION; Start 06/08/18 at 10:30 Bisacodyl (Dulcolax Supp) 10 mg DAILY PRN [place] CONSTIPATION; Start 06/08/18 at 10:30 Sodium Biphosphate/ Sodium Phosphate (Fleet Enema) 133 ml DAILY PRN [place] CONSTIPATION; Start 06/08/18 at 10:30 Diphenhydramine HCl (Benadryl) 25 mg Q4H PRN IV ITCHING; Start 06/08/18 at 10:30 Naloxone HCl (Narcan) 0.2 mg Q2M PRN IV DECREASED REPIRATORY RATE; Start 06/08/18 at 10:30 Bethanechol Chloride (Urecholine) 25 mg URINARY CATH D/C PRN PO UNABLE TO VOID; Start 06/08/18 at 10:30 Aspirin (Halfprin) 81 mg BID PO Last administered on 06/09/18at 09:08; Admin Dose 81 MG; Start 06/09/18 at 09:00 Atorvastatin Calcium (Lipitor) 10 mg QHS PO Last administered on 06/08/18at 21:18; Admin Dose 10 MG; Start 06/08/18 at 21:00 Guaifenesin/ Codeine Phosphate (Robitussin Ac Liquid Cup) 5 ml Q4H PRN PO cough; Start 06/08/18 at 16:00 Albuterol/ Ipratropium (Duoneb) 3 ml Q2H RESP THERAPY PRN HHN shortness of breath; Start 06/08/18 at 16:00 VTE Prophylaxis Risk score (from Nsg)>0 risk: 5 SCD applied (from Nsg): Yes Lines/Catheters IV Catheter Type: Reyes in Place: No Assessment/Plan Hospital Course subjective no acute overnight events Objective Physical exam General: Patient is laying in bed and answers questions appropriately Mentation: Patient is alert and oriented 4, Head: Normocephalic atraumatic Eyes: EOMI, pupils reactive to light Neck: Supple, nontender, midline Respiratory: Clear to auscultation bilaterally Cardiovascular: regular rate, no obvious murmurs Gastrointestinal: non-tender to palpation, bowel sounds heard. Neurological: Moves all extremities spontaneously Skin: Right knee bandaged, CDI Assessment and plan Right knee osteoarthritis, status post total right knee arthroplasty -Orthopedic surgery to manage -Monitor Right knee osteoarthritis -Status post right knee arthroplasty Dyslipidemia -Continue home meds Disposition -Orthopedic surgery to manage, will follow along as hospitalist. -ok to DC from television presenter perspective LESLEY MCKEON Jun 09, 2018 13:31
[2018-06-09 14:53] VITALS: BP 99/54; PULSE 60; RESP 18
[2018-06-09 15:30] VITALS: BP 121/63; PULSE 65; RESP 18
[2018-06-09 19:20] VITALS: BP 145/64; PULSE 73; RESP 18
[2018-06-10] MEDS ORDERED: PANTOPRAZOLE (EC) 40 MG TAB PO SCH (06:00)
--- NOTE | 2018-06-10 09:51 | DS ---
Date/Time of Note Date/Time of Note DATE: 06/10/18 TIME: 09:50 Discharge Summary Admission/Discharge Info Admit Date/Time Jun 08, 2018 at 09:47 Discharge Date/Time Jun 09, 2018 at 20:45 Discharge Diagnosis Status post right total knee replacement Patient Condition: Good Hospital Course On the day of admission, the patient underwent right total knee arthroplasty Intraoperative complications: None Postoperative complications: None The patient was given prophylactic antibiotics and anticoagulants. On the day of surgery and first postoperative day patient was started on gait training and was taught usual restrictions following knee replacement On postoperative day 1 dressing was clean dry and intact. No complications were observed. On the day of discharge, the wound was clean and healing well; there was no sign of infection. Wound care instructions were discussed with the patient. Discharge Temperature: 99.6 Discharge White Blood Cell Count: 9.2 Discharge Hemoglobin: 11.6 The patient was discharged senior care facility. Arrangements were made for visiting nurses and home health/physical therapy. The patient will be seen in office at scheduled postoperative evaluation date given on their preoperative exam. Should patient complain of any problems prior to scheduled postoperative evaluation date, they may call into outpatient clinic to determine if they need to be scheduled at sooner appointment to be seen immediately if needed. Discharge medications: As per medication reconciliation form Diet: Same as preadmission diet. This is Selene Montano PA-C dictating discharge summary for Dr. Cristal Huerta. Home Meds Reported Medications Atorvastatin Calcium (Atorvastatin Calcium) 10 Mg Tablet, 10 MG PO QHS, #30 TAB 06/08/18 Follow-up Plan Follow-up at postoperative appointment provided to you at your preoperative exam Primary Care Provider Not On Staff Doctor SELENE CASTRO PA-C Jun 10, 2018 09:51
== END 2018-06-09 20:45 | DRG 470 ==
LOC: REC 09:47 → MS1 17:00
PROVIDERS: ADMIT Orthopaedic Surgery Adult Reconstructive Orthopaedic Surgery; ATTEND Orthopaedic Surgery Adult Reconstructive Orthopaedic Surgery
PROC: 0SRC069 Replacement of Right Knee Joint with Oxidized Zirconium on Polyethylene Synthetic Substitute, Cemented, Open Approach (ICD-10-PCS; principal; 2018-06-08 12:30)
DX: M17.11 Unilateral primary osteoarthritis, right knee (principal); E78.5 Hyperlipidemia, unspecified
CPT/HCPCS: 73560; 80048; 83735; 84100; 85025; 88304; 88311; 97116; 97161; 97167; 97530; C1713; C1776; J0690; J1100; J2250; J2274; J2405; J2710; J2795; J3010; J7030

== ENCOUNTER → 2018-07-19 | Outpatient (CLI) | payer OTHER ==
[~2018-07-19] MED LIST: ATOR10TA65 PO
--- NOTE | 2018-07-19 17:30 | HKNOTE ---
DATE OF SERVICE: 07/19/2018 HISTORY OF PRESENT ILLNESS: Ms. Page is 6 weeks status post left total knee arthroplasty. [place]; therefore she has not started outpatient physical therapy. She is using a walker for ambulation. She is taking aspirin twice daily for DVT prophylaxis. Date of surgery of 06/08/2018 for left total knee arthroplasty. PHYSICAL EXAMINATION: Left knee: Healed incision, -20 to 120 degrees range of motion, stable to varus valgus stress, 5/5 function of quadriceps, tibialis anterior, gastric soleus. DIAGNOSTIC DATA: X-rays of the left knee demonstrate the implant to be in acceptable alignment. No fractures, dislocations or loosening. IMPRESSION: A 62-year-old female 6 weeks status post left total knee arthroplasty. PLAN: The [place]. I explained to the patient to commence outpatient physical therapy. She can be weightbearing as tolerated. She can switch to using her cane. I recommended the patient to follow up with me at her 1-year followup or to see an orthopedic surgeon where she moves. This was done with the help of [place]ian speaking freelance web designer. Dictated By: KELSEY BARRETO/HAKEEM Conf#: [id number] DID#: [id number]
--- NOTE | 2018-07-20 09:01 | RADRPT ---
PROCEDURE: Right knee radiographs. CLINICAL INDICATION: Right knee pain. Postop. TECHNIQUE: Three views. Weight bearing. Frontal, lateral, and patellar view. COMPARISON: 06/24/2018. FINDINGS: There is no fracture or dislocation. There is a small knee joint effusion, unchanged. There is a total right knee arthroplasty which appears satisfactory. There is no lytic or blastic lesion. IMPRESSION: 1. Small joint effusion. 2. Otherwise unremarkable postoperative appearance of the right knee. RPTAT: QQ .Michael Soria MD, MD Date Time Electronically viewed and signed by .Michael Soria MD, MD on 07/20/2018 09:01 .R/
== END | disposition home or self-care (01) ==
LOC: HKI 15:00
PROVIDERS: ATTEND Orthopaedic Surgery Adult Reconstructive Orthopaedic Surgery
DX: Z09 Encounter for follow-up examination after completed treatment for conditions other than malignant neoplasm (principal); Z96.652 Presence of left artificial knee joint

== ENCOUNTER → 2018-07-21 | Outpatient (CLI) | payer OTHER ==
--- NOTE | 2018-07-21 17:11 | CONS ---
Consult Date/Type/Reason Admit Date/Time Initial Consult Date Date/Time of Note DATE: 07/21/18 TIME: 17:06 Subjective DOS: 06/08/2018 Procedure: Right TKA 6 weeks s/p right TKA who returns today for follow up. The patient is doing well overall. She was seen just a couple days ago in clinic. She returns today for concern of purulent drainage from her incision. Once the fluid collection drained her pain significantly decreased. Denies F/C. Denies N/T. She is also experiencing a papular rash around the knee and lower extremity. The patient and staff in the clinic that have seen her recently this is much improved. She is moving to [facility] next week. Narcotic Pain medication: [place] Gait Aids: Cane Pain better than before surgery: Yes Pleased with outcome. Objective Exam Objective Exam General: Alert, oriented x3. No Acute Distress. Heart: Regular rate and rhythm. Lungs: No respiratory distress. No accessory muscle use. Right lower Extremity: There is a healing suture abscess at the most proximal extent of the incision. There is no active drainage. There is no erythema. There is no tenderness to palpation. There is no warmth. Otherwise the incision clean, dry, intact. No skin breakdown, no surrounding erythema. There is a papular rash from mid thigh to mid tibia. No signs of infection. Sensation intact to light touch in a sural, saphenous, deep peroneal, superficial peroneal, medial and lateral plantar nerve distribution. Motor is intact, patient able to dorsiflex and plantarflex ankle and extend and flex great toe. Dorsalis Pedis pulse +2, Brisk capillary refill. Compartments are soft. ROM: Extension: 10 Flexion: 90 Varus/ Valgus Stability: Stable in extension, flexion, and throughout range of motion A/P Stability: Stable Gait: Slow pace. antalgic. Cane for gait aid. Results/Medications Home Meds Reported Medications Atorvastatin Calcium (Atorvastatin Calcium) 10 Mg Tablet, 10 MG PO QHS, #30 TAB 06/08/18 Assessment/Plan Hospital Course (Demo Recall) This is a 62-year-old female 6 weeks status post right TKA. Overall she is doing well. The patient experienced a stitch abscess at the most proximal extent of her incision. There are no signs of deep infection. The stitch abscess is mostly resolved. She has a papular rash of unknown origin that is a lso resolving. I did discuss with her the need for more range of motion exercises especially to work on extension. She needs further gait training as she does have some difficulty ambulating with a walker. She is moving to another [place] next week. I urged her to continue her physical therapy and to establish care up there. Plan: Continue aspirin for DVT prophylaxis no dental procedures for 3 months postop Continue physical therapy and focus on extension and flexion. Follow-up with us or care established locally in 6 weeks. VERÓNICA MOORE MD Jul 21, 2018 17:11
== END | disposition home or self-care (01) ==
LOC: HKI 14:03
PROVIDERS: ATTEND Orthopaedic Surgery Adult Reconstructive Orthopaedic Surgery
DX: Z47.1 Aftercare following joint replacement surgery (principal); Z96.651 Presence of right artificial knee joint